=== PATIENT | male | born 1955 | race Caucasian/White ===

== ENCOUNTER 2023-01-17 08:56 | Outpatient (CLI) | payer MEDICARE, MEDICAID, SELFPAY ==
[2023-01-17 09:14] VITALS: PULSE 66; RESP 18; O2SAT 97
[2023-01-17] MEDS: albuterol 2.5 mg/3 mL Neb INHALATION (09:14)
[2023-01-17 09:19] VITALS: PULSE 69
== END 2023-01-17 08:57 | disposition home or self-care (01) ==
PROVIDERS: PCP Electrodiagnostic Medicine; Visit Provider Electrodiagnostic Medicine
DX: J44.9 Chronic obstructive pulmonary disease, unspecified (principal)
CPT/HCPCS: 94060; 94726; 94729; J7613

== ENCOUNTER 2023-01-23 14:01 | Outpatient (CLI) | payer MEDICARE, MEDICAID, SELFPAY ==
--- NOTE | 2023-01-23 14:13 | USCV_ITS ---
Nick Marquis Age: 67 Gender: M : 1955 Exam Date: 01/23/2023 14:33 Ordering Phys: Glenroy Bazan DO Technologist: Stevan Shaw Clerk Supervisor Exam Location: [facility] [place] Indication: claudication RIGHT LEFT Brachial 157.00 mmHg Brachial 147.00 mmHg Pressure (mmHg) Waveform Pressure (mmHg) Waveform 141.00 PHARMACY CLINICAL SPECIALIST 113.00 132.00 DPA 100.00 0.90 Ankle/Brachial Index 0.72 0.93 Post-Exercise Ankle Brachial Index 0.73 104.00 Pre-Exercise Toe Pressure 77.00 0.66 Pre-Exercise Toe/Brachial Index 0.49 FINDINGS Resting [id number] of 0.9 on the right and 0.72 on the left Post exercise [id number] of 0.93 on the right and 0.73 on the left Resting TBI of 0.66 on the right and 0.49 on the left CONCLUSIONS 1. Features suggesting mild peripheral artery disease on the right side 2. Features suggesting moderate peripheral artery disease on the left side Dr Karely Her MD [facility] (Electronically Signed) Final Date: 24 January 2023 20:55 S
== END 2023-01-23 14:02 | disposition home or self-care (01) ==
LOC: RAD 14:06
PROVIDERS: PCP Electrodiagnostic Medicine; Visit Provider Electrodiagnostic Medicine
DX: I73.9 Peripheral vascular disease, unspecified (principal)
CPT/HCPCS: 93922

== ENCOUNTER → 2023-04-12 10:49 | Outpatient (BNVA) | payer MEDICARE, MEDICAID, SELFPAY | PROVIDERS: PCP Electrodiagnostic Medicine; Visit Provider Thoracic Surgery (Cardiothoracic Vascular Surgery) | DX: I73.9 Peripheral vascular disease, unspecified (principal); F17.210 Nicotine dependence, cigarettes, uncomplicated | CPT/HCPCS: 99203 ==

== ENCOUNTER 2023-04-19 06:07 | Outpatient (CLI) | payer MEDICARE, MEDICAID, SELFPAY ==
--- NOTE | 2023-04-19 06:15 | USR_ITS ---
PROCEDURE INFORMATION: Exam: US Duplex Bilateral Lower Extremity Arteries Exam date and time: 04/19/2023 6:24 AM Age: 67 years old Clinical indication: Pain; Leg, lower; Bilateral; Additional info: Leg pain, needs to be done before 05/31/23 visit TECHNIQUE: Imaging protocol: Real-time ultrasound scan of the arteries of the bilateral lower extremities with 2-D wills scale, color Doppler flow and spectral waveform analysis. Images documented and saved. COMPARISON: No relevant prior studies available. FINDINGS: Right common femoral artery: No occlusion. Mild atherosclerotic narrowing with triphasic waveform and some spectral broadening with relatively elevated peak systolic velocity measuring 148.6 cm/s. Right superficial femoral artery: No occlusion. Proximal segment shows mild atherosclerotic narrowing with triphasic waveform and some spectral broadening with peak systolic velocity measuring 108.8 cm/s. Mid segment shows triphasic waveform with mild spectral broadening and peak systolic velocity measuring 121.2 cm/s. Distal segment shows triphasic waveform with some spectral broadening and peak systolic velocity measuring 101.3 cm/s. Right popliteal artery: No occlusion. Biphasic waveform with some spectral broadening and peak systolic velocity measuring 54.0 cm/s. Right calf/foot arteries: No occlusion. Posterior tibial artery shows biphasic waveform with spectral broadening and peak systolic velocity measuring 50.2 cm/s. Dorsalis pedis artery shows peak systolic velocity measuring 39.3 cm/s. Left common femoral artery: No occlusion. Parvus tardus monophasic waveform with some spectral broadening and peak systolic velocity measuring 89.4 cm/s. Left superficial femoral artery: No occlusion. Parvus tardus monophasic waveform with spectral broadening throughout and peak systolic velocity measuring 90.9 cm/s proximally, 60.1 cm/s at the mid segment, and 59.0 cm/s distally. Left popliteal artery: No occlusion. Parvus tardus monophasic waveform with spectral broadening and peak systolic velocity measuring 35.0 cm/s. Left calf/foot arteries: No occlusion. Posterior tibial artery shows monophasic waveform with spectral broadening and peak systolic velocity measuring 42.7 cm/s. Dorsalis pedis artery shows peak systolic velocity measuring 24.3 cm/s. Right Ankle-Brachial Index: 0.94. Left Ankle-Brachial Index: 0.74. US/CV arterial duplex [facility] [id number] IMPRESSION: Findings reflect [id number] lower extremity peripheral arterial disease.
== END 2023-04-19 06:08 | disposition home or self-care (01) ==
PROVIDERS: PCP Electrodiagnostic Medicine; Visit Provider Thoracic Surgery (Cardiothoracic Vascular Surgery)
DX: I73.9 Peripheral vascular disease, unspecified (principal); M79.605 Pain in left leg; M79.604 Pain in right leg
CPT/HCPCS: 93925

== ENCOUNTER → 2023-05-31 10:44 | Outpatient (BNVA) | payer MEDICARE, MEDICAID, SELFPAY | PROVIDERS: PCP Electrodiagnostic Medicine; Visit Provider Thoracic Surgery (Cardiothoracic Vascular Surgery) | DX: R00.1 Bradycardia, unspecified (principal); F17.210 Nicotine dependence, cigarettes, uncomplicated; I73.9 Peripheral vascular disease, unspecified | CPT/HCPCS: 93005; 99213 ==

== ENCOUNTER → 2023-12-03 12:50 | Outpatient (BNVA) | payer MEDICARE, MEDICAID, SELFPAY | PROVIDERS: PCP Electrodiagnostic Medicine; Visit Provider Thoracic Surgery (Cardiothoracic Vascular Surgery) | DX: I73.9 Peripheral vascular disease, unspecified (principal) | CPT/HCPCS: 99213 ==